=== PATIENT | female | born 1990 | race Caucasian/White ===

== ENCOUNTER 2017-10-27 03:50 | Inpatient (IN) | payer BC, OTHER ==
[2017-10-27] MEDS ORDERED: DEXTROSE 5%-LACTATED RINGERS 500 ML IV ONE (04:00)
[2017-10-27] MEDS ORDERED: PROMETHAZINE HCL 25 MG/1 ML VIAL ONE (04:49)
[2017-10-27] MEDS ORDERED: BUTORPHANOL TARTRATE 1 MG/ML VIAL ONE ×2 (04:49)
[2017-10-27] MEDS ORDERED: PROMETHAZINE HCL 25 MG/1 ML VIAL IVPB ONE (05:00)
[2017-10-27] MEDS ORDERED: BUTORPHANOL TARTRATE 1 MG/ML VIAL IVPB ONE (05:00)
[2017-10-27 05:04] LABS: BASO % 0.1 % (0-2.0); EOS % 0.3 % (0-4.5); HEMATOCRIT 38.7 % (32.4-45.2); INR 0.97 (0.83-1.09); LYMPH % 19.3 % (8-40); MCH 27.5 pg (25.7-33.7); MCHC 33.7 g/dl (32.0-36.0); MEAN CELL VOLUME 81.7 fl (80-96); MEAN PLT VOLUME 9.7 fl (7.5-11.1); MONO % 4.9 % (3.8-10.2); NEUT % 75.4 % (42.8-82.8); PLATELET COUNT 173 K/MM3 (134-434); RBC 4.74 M/mm3 (3.60-5.2); RDW 15.6 % (11.6-15.6); WHITE BLOOD COUNT 12.6 K/mm3 (4.0-10.0)
[2017-10-27 05:07] LABS: ACTIVATED PTT 25.1 SECONDS (25.2-36.5)
[2017-10-27 05:11] LABS: ANION GAP 13 MMOL/L (8-16); BLOOD UREA NITROGEN 7 mg/dL (7-18); CALCIUM 8.5 mg/dL (8.5-10.1); CHLORIDE 107 mmol/L (98-107); CO2 17 mmol/L (21-32); CREATININE 0.5 mg/dL (0.55-1.3); GLUCOSE,RANDOM 97 mg/dL (74-106); POTASSIUM 3.4 mmol/L (3.5-5.1); SODIUM 137 mmol/L (136-145)
[2017-10-27 05:35] VITALS: BMI 32.8
[2017-10-27] MEDS ORDERED: TUBERCULIN PPD 5 TU/0.1ML SYRINGE (IN PATIENT USE ONLY) ID ONE (06:00)
[2017-10-27] MEDS ORDERED: ELECTROLYTE-148 SOLN 1,000 ML IV SCH ×2 (06:30→08:45)
[2017-10-27] MEDS: DEXTROSE 5%-LACTATED RINGERS 1,000 ML IV SCH (06:30)
--- NOTE | 2017-10-27 07:18 | HP ---
Past Medical History - Primary Care Physician PCP:: Martha Hernandez - Admission Chief Complaint: 27yo P1 @ 40.3 wks with painfull contructions, no VB, no LOF, + FM History of Present Illness: 1. PCOS - Overweight - GCT - 144 - nl GTT 2. GBS neg no need for prophylaxis PNL: O pos/RI/RPR-nr/HIV neg/HepB neg Tdap given 09/26/17 History Source: Patient, Medical Record Limitations to Obtaining History: No Limitations - Past Medical History Reproductive: Yes: Ectopic (11/2015 - Right ectopic - MTX) ...: 3 ...Para: 1 ([id number] intrapartum Hemorrhage, fever, seizures?) ...Term: 1 ...: 0 ...Spon : 1 ...Induced : 0 ...Multiple Gestation: 0 ...LMP: 01/13/17 ...EDC by Dates: 10/20/17 ...EDC by Sono: 10/24/17 Heme/Onc: Yes: Other (Increased Bleeding time - neg Heme w/up) Infectious Disease: Yes: Other (Had chicken pox as a child) Endocrine: Yes: Other (PCOS) - Past Surgical History Hx Myomectomy: No Hx Transabdominal Cerclage: No Additional Surgical History: 2016 Laparatomy for ruptured ovarian cyst, MTX postop - Smoking History Smoking history: Former smoker Have you smoked in the past 12 months: No - Alcohol/Substance Use Hx Alcohol Use: No History of Substance Use: reports: None - Social History History of Recent Travel: No Home Medications - Allergies Allergies/Adverse Reactions: Allergies Allergy/AdvReac Type Severity Reaction Status Date / Time No Known Allergies Allergy Verified 10/27/17 05:12 - Home Medications Home Medications: Ambulatory Orders Pnv No.95/Ferrous Fum/Folic AC [ Vitamin Tablet] 1 each PO DAILY Calcium Carbonate [Calcium] 1,200 mg PO DAILY 09/15/17 Review of Systems - Review of Systems Constitutional: reports: No Symptoms Eyes: reports: No Symptoms HENT: reports: No Symptoms Neck: reports: No Symptoms Cardiovascular: reports: No Symptoms Respiratory: reports: No Symptoms Gastrointestinal: reports: No Symptoms Genitourinary: reports: No Symptoms Breasts: reports: No Symptoms Reported Musculoskeletal: reports: No Symptoms Integumentary: reports: No Symptoms Neurological: reports: No Symptoms Endocrine: reports: No Symptoms Hematology/Lymphatic: reports: No Symptoms Psychiatric: reports: No Symptoms Physical Exam - Maternity Vital Signs: Vital Signs Temperature 98.6 F 10/27/17 04:59 Pulse Rate 74 10/27/17 04:59 Respiratory Rate 18 10/27/17 04:59 Blood Pressure 109/59 10/27/17 04:59 O2 Sat by Pulse Oximetry (%) Constitutional: Yes: Well Nourished, No Distress, Calm Eyes: Yes: WNL, Conjunctiva Clear, EOM Intact HENT: Yes: WNL, Atraumatic, Normocephalic Neck: Yes: WNL, Supple, Trachea Midline Cardiovascular: Yes: WNL, Regular Rate and Rhythm Lungs: Clear to auscultation Breast(s): Yes: WNL - Abdominal Exam/OB Fundal Height: 39 (EFW - 7.5lb) Number of Fetuses: Single Presentation: Vertex Contractions: Yes Regularity: Regular (Q 2-3min) Intensity: Mild/Mod Monitor Mode: External Heart Rate (range): 140's Heart Rate Location: Midline Category: I Accelerations: Uniform Decelerations: None - Vaginal Exam/OB Vaginal Bleediing: No Speculum Exam: No Dilatation (cm): 2-3 Amniotic Membrane Status: Intact (@ 4am current exam 7:30am: 4cm/90%/-2) Presentation: Vertex/Position Station: -3 - Physical Exam Musculoskeletal: Yes: WNL Extremities: Yes: WNL Edema: No Integumentary: Yes: WNL Deep Tendon Reflex Grade: Normal +2 ...Motor Strength: WNL Psychiatric: Yes: WNL, Alert, Oriented - Labs Lab Results: CBC, BMP 10/27/17 04:30 10/27/17 04:30 Assessment/Plan 27yo P0 @ 40.3wks in active labor Fetus Category 1 Mother stable Desires pain management Epidural requested continue monitoring labor
[2017-10-27] MEDS ORDERED: FENTANYL/BUPIVACAINE/NS/PF - PCEA - 50 ML DISP.SYRIN EP ONE ×3 (07:45→18:02)
[2017-10-27] MEDS ORDERED: NALOXONE HCL 0.4 MG/ML VIAL IVPUSH PRN (07:49)
[2017-10-27] MEDS ORDERED: FENTANYL/BUPIVACAINE/NS/PF - PCEA - 50 ML DISP.SYRIN EP SCH (08:00)
[2017-10-27] MEDS ORDERED: POTASSIUM CHLORIDE TABS 20 MEQ TABLET.ER (FP) PO ONE (08:47)
--- NOTE | 2017-10-27 08:55 | PN ---
Progress Note (short form) - Note Progress Note: Patient was asked if she is ok discussing private questions with being in the room She said it is no problem Once left the room she reported to the nurse h/o genital warts, no HSV Patient was evaluated by Dr. Avilez in the office and was told there is no problem laboring vaginally. Patient has adequate pelvis and EFW 7.5lb
--- NOTE | 2017-10-27 10:30 | PN ---
Progress Note, Labor Vaginal Exam #1 Labor Exam Date: 10/27/17 Labor Exam Time: 10:15 Heart Rate (range): 140s Dilatation: 5 Effacement (%): 100 Amniotic Membrane Status: Intact Presentation: Vertex/Position Station: -3 Remarks: MF status reassuring contractions slightly spaced out after epidural Will start Pitocin if contractions do not survey superintendent
[2017-10-27] MEDS ORDERED: OXYTOCIN 30 UNITS in 0.9% NS 30 UNIT/500 ML INFUS.BAG IVPB ONE (13:23)
[2017-10-27] MEDS ORDERED: OXYTOCIN 30 UNITS in 0.9% NS 30 UNIT/500 ML INFUS.BAG IVPB SCH (13:30)
[2017-10-27] MEDS ORDERED: OXYTOCIN 20 UNITS in 0.9% NS 20 UNIT/1,000 ML INFUS.BAG IV ONE (16:20)
[2017-10-27] MEDS ORDERED: LIDO 2%/EPI 1:200000 PRESRVFRE (20 ML SDVIAL) ONE (16:57)
--- NOTE | 2017-10-27 17:11 | PN ---
Progress Note, Labor Vaginal Exam #2 Labor Exam Date: 10/27/17 Labor Exam Time: 16:45 Heart Rate (range): 140s Dilatation: 9 Effacement (%): 100 Amniotic Membrane Status: Ruptured (by Dr. Dawn @ 1500 clear fluid) Presentation: Vertex/Position Station: -2 Remarks: FHR monitor placed @ 16:30 Exellent verriability Patient is very uncomfortable, desires to push top off requested and obtained FHR and patient stabilized will continue monitoring progress of labor
[2017-10-27] MEDS ORDERED: AMPICILLIN SODIUM 2 GM VIAL ONE (19:14)
[2017-10-27] MEDS ORDERED: GENTAMICIN SO4 80 MG/2 ML VIAL ONE (19:14)
[2017-10-27] MEDS ORDERED: AMPICILLIN - 2 GM in SODIUM CHLORIDE 100 ML IVPB ONE (19:15)
[2017-10-27] MEDS ORDERED: LIDOCAINE HCL 1% PRESERVATIVE FREE - 30ML VIAL ONE (19:28)
--- NOTE | 2017-10-27 19:48 | PN ---
Delivery - Delivery Vaginal Delivery: No Problems Type of Anesthesia: Epidural Episiotomy/Laceration: None EBL (cc): 400 Delivery, Single - Stages of Labor Date 1st Stage Initiatied: 10/27/17 Time 1st Stage Initiated: 01:00 Date 2nd Stage Initiated: 10/27/17 Date of Delivery: 10/27/17 Placenta: Yes: Spontaneous - Condition of Infant Revenue Accountant/Health Tech Present: No Infant Gender: Female Weight: 8 lb Position: Left, OA - 1 Minute Total Score: 9 5 Minutes Total Score: 9 - [place] Feeding Plan Initial Plan: Elected not to breastfeed exclusively throughout hospitalization Remarks - Remarks Remarks: Uncomplicated vaginal delivery, cord around left shoulder recused 1 periuretheral tear repaired with 3-0 Chromic figure 8.
[2017-10-27] MEDS ORDERED: BENZOCAINE 20% 57 GM BOTTLE TP PRN (19:49)
[2017-10-27] MEDS ORDERED: WITCH HAZEL 50% (TUCKS) 40 PAD/JAR PAD TP PRN (19:49)
[2017-10-27] MEDS ORDERED: BISACODYL 10 MG SUPP.RECT RC PRN (19:49)
[2017-10-27] MEDS ORDERED: BENZOCAINE 28 GM HEMORRHOIDAL OINTMENT TP PRN (19:49)
[2017-10-27] MEDS ORDERED: METHYLERGONOVINE MALEATE 0.2 MG/1 ML AMP IM PRN (19:49)
[2017-10-27] MEDS ORDERED: CEFAZOLIN 1 GM in DEXTROSE 5%-WATER - 50 ML IVPB SCH (20:00)
[2017-10-27] MEDS ORDERED: OXYTOCIN 20 UNITS in 0.9% NS 20 UNIT/1,000 ML INFUS.BAG IV SCH ×2 (20:00→20:15)
[2017-10-27] MEDS: CEFAZOLIN 1 GM in DEXTROSE 5%-WATER - 50 ML IVPB SCH (20:30)
[2017-10-27] MEDS ORDERED: ceFAZolin SODIUM 1 GM VIAL ONE (20:51)
[2017-10-27 21:02] LABS: ARTERIAL BLOOD GAS BASE EXCESS -4.8 meq/l (-2-2); ARTERIAL BLOOD GAS pH 7.32 (7.35-7.45)
[2017-10-27 21:04] LABS: ARTERIAL BLD GAS O2 SATURATION 37.1 % (90-98.9); ARTERIAL BLOOD GAS PO2 20.8 mmHg (80-100); VENOUS PC02 27.5 mmHg (38-52); VENOUS PH 7.42 (7.32-7.42)
[2017-10-27 21:05] LABS: VENOUS PO2 33.7 mmHg (28-48)
[2017-10-28] MEDS ORDERED: DEXTROSE 5%-WATER - 50 ML IVPB ONE ×2 (03:37→11:29)
[2017-10-28] MEDS ORDERED: ceFAZolin SODIUM 1 GM VIAL ONE ×2 (03:37→11:29)
[2017-10-28] MEDS: CEFAZOLIN 1 GM in DEXTROSE 5%-WATER - 50 ML IVPB SCH ×2 (03:49→11:56)
[2017-10-28 07:10] LABS: BASO % 0.1 % (0-2.0); EOS % 0.1 % (0-4.5); HEMATOCRIT 32.6 % (32.4-45.2); HEMOGLOBIN 10.6 GM/dL (10.7-15.3); LYMPH % 12.8 % (8-40); MCH 26.4 pg (25.7-33.7); MCHC 32.5 g/dl (32.0-36.0); MEAN CELL VOLUME 81.5 fl (80-96); MEAN PLT VOLUME 9.4 fl (7.5-11.1); MONO % 6.6 % (3.8-10.2); NEUT % 80.4 % (42.8-82.8); PLATELET COUNT 144 K/MM3 (134-434); RBC 4.01 M/mm3 (3.60-5.2); RDW 15.6 % (11.6-15.6); WHITE BLOOD COUNT 16.4 K/mm3 (4.0-10.0)
--- NOTE | 2017-10-28 08:09 | PN ---
Post Progress Note - Subjective Subjective: No complains Type of Delivery: Vital Signs: Vital Signs Temperature 98.2 F 10/28/17 06:00 Pulse Rate 96 H 10/28/17 06:00 Respiratory Rate 18 10/28/17 06:00 Blood Pressure 118/68 10/28/17 06:00 O2 Sat by Pulse Oximetry (%) 99 10/27/17 19:15 Breast Exam: Yes: Soft Uterus: Yes: Fundus Firm Abdomen/GI: Yes: Abdomen soft, Tolerating PO Lochia: Yes: Rubra Lochia, amount: Small Extremities: Yes: Calves non-tender Perineum: Yes: Intact Activity: Ambulating - Labs Labs: CBC WBC 16.4 K/mm3 (4.0-10.0) H 10/28/17 06:35 RBC 4.01 M/mm3 (3.60-5.2) 10/28/17 06:35 Hgb 10.6 GM/dL (10.7-15.3) L 10/28/17 06:35 Hct 32.6 % (32.4-45.2) D 10/28/17 06:35 MCV 81.5 fl (80-96) 10/28/17 06:35 MCH 26.4 pg (25.7-33.7) 10/28/17 06:35 MCHC 32.5 g/dl (32.0-36.0) 10/28/17 06:35 RDW 15.6 % (11.6-15.6) 10/28/17 06:35 Plt Count 144 K/MM3 (134-434) 10/28/17 06:35 MPV 9.4 fl (7.5-11.1) 10/28/17 06:35 Absolute Neuts (auto) 13.2 K/mm3 (1.5-8.0) H 10/28/17 06:35 Neutrophils % 80.4 % (42.8-82.8) 10/28/17 06:35 Lymphocytes % 12.8 % (8-40) D 10/28/17 06:35 Monocytes % 6.6 % (3.8-10.2) 10/28/17 06:35 Eosinophils % 0.1 % (0-4.5) 10/28/17 06:35 Basophils % 0.1 % (0-2.0) 10/28/17 06:35 Nucleated RBC % 0 % (0-0) 10/28/17 06:35 Assessment/Plan 27yo P 2 now s/p VSS, Afebrile Bleeding well controlled Doing well Rh pos continue routine care Plan d/c 10/29/17
[2017-10-28] MEDS: FERROUS SO4 325 MG TABLET (FP) PO SCH ×2 (09:00→17:44)
[2017-10-28] MEDS: PRENATAL VITAMINS W/ FOLIC ACID TABLET (FP) PO SCH (09:00)
[2017-10-28] MEDS ORDERED: SENNOSIDES/DOCUSATE COMBO (SENNA PLUS) TABLET (UD) PO PRN (22:00)
[2017-10-29 07:17] LABS: BASO % 0.4 % (0-2.0); EOS % 0.9 % (0-4.5); HEMATOCRIT 33.5 % (32.4-45.2); HEMOGLOBIN 11.1 GM/dL (10.7-15.3); LYMPH % 20.1 % (8-40); MCH 27.1 pg (25.7-33.7); MCHC 33.3 g/dl (32.0-36.0); MEAN CELL VOLUME 81.6 fl (80-96); NEUT % 72.6 % (42.8-82.8); PLATELET COUNT 157 K/MM3 (134-434); RDW 15.8 % (11.6-15.6); WHITE BLOOD COUNT 12.2 K/mm3 (4.0-10.0)
[2017-10-29] MEDS: FERROUS SO4 325 MG TABLET (FP) PO SCH (08:00)
[2017-10-29] MEDS: IBUPROFEN 600 MG TABLET (FP) PO PRN ×2 (09:47→14:53)
[2017-10-29] MEDS: ACETAMINOPHEN 325 MG TABLET (FP) PO PRN ×2 (09:49→14:54)
[2017-10-29] MEDS: DEXTROSE 5%-LACTATED RINGERS 1,000 ML IV SCH (09:50)
[2017-10-29] MEDS: PRENATAL VITAMINS W/ FOLIC ACID TABLET (FP) PO SCH (10:00)
[2017-10-29 13:20] VITALS: BP 106/67; PULSE 87; TEMP 97.8
== END 2017-10-29 17:19 | disposition home or self-care (01) | DRG 775 ==
LOC: JDEL 03:50 → JLDR 04:00 → J3W 22:20
PROVIDERS: ADMIT Obstetrics & Gynecology; ATTEND Obstetrics & Gynecology
PROC: 10D07Z8 Extraction of Products of Conception, Other, Via Natural or Artificial Opening (ICD-10-PCS; principal; 2017-10-27)
DX: O26.893 Other specified pregnancy related conditions, third trimester (principal); Z3A.40 40 weeks gestation of pregnancy; E87.6 Hypokalemia; Z37.0 Single live birth
CPT/HCPCS: 36415; 36600; 59409; 71046-TC-FY; 80048; 82803; 85025; 85610; 85730; 86593; 86850; 86900; 86901; 90686; G0008

== ENCOUNTER 2018-11-18 12:20 | Day surgery (SDC) | payer BC, OTHER ==
[2018-11-16 17:53] VITALS: BMI 31.5
--- NOTE | 2018-11-18 14:37 | HP ---
Past Medical History - Primary Care Physician PCP:: Lucas Avilez - Admission Chief Complaint: 28yo P2 admitted for sterilization with laparoscopic BTL. History of Present Illness: Undesired fertility, recent TOP. 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: Alzheimer's, CVA, Dementia, Migraine, Multiple Sclerosis, Peripheral Neuropathy, Parkinson's, Seizure, Syncope, TIA, Vertigo, Other Cardiovascular: No: AFIB, Aneurysm, Aortic Insufficiency, Aortic Stenosis, CAD, CHF, Deep Vein Thrombosis, HTN, Hyperlipdemia, SC, Mitral Insufficiency, Mitral Stenosis, Murmur, Pulmonary Hypertension, Other Pulmonary: No: Asthma, Bronchitis, Cancer, COPD, O2 Dependent, Pneumonia, Previously Intubated, Pulmonary Embolus, Pulmonary Fibrosis, Sleep Apnea, Other Gastrointestinal: No: Ascites, Cancer, Constipation, Crohn's Disease, Diverticulitis, Diverticulosis, Esophageal Varices, Gastritis, GERD, GI Bleed, Hemorrhoids, Hiatal Hernia, Inflamatory Bowel Disease, Irritable Bowel Disease, Pancreatitis, Peptic Ulcer Disease, Ulcerative Colitis, Other Hepatobiliary: No: Cirrhosis, Cholelithiasis, Cholecystitis, Choledocholithiasis , Hepatitis A, Hepatitis B, Hepatitis C, Other Renal/: No: Renal Failure, Renal Inusuff, BPH, Cancer, Hematuria, Hemodialysis , Neurogenic Bladder, Renal Calculi, UTI, Other Reproductive: Yes: Polycystic Ovary Syndrome ...Para: 2 Heme/Onc: Yes: Other (Increased Bleeding time - neg Heme w/up) Infectious Disease: Yes: Other (Had chicken pox as a child) Psych: No: Addictions, Anxiety, Bipolar, Depression, Panic, Psychosis, Schizophrenia, Other Musculoskeletal: No: Bursitis, Chronic low back pain, Hemiparesis, Hemiplegia, Osteoarthritis, Paraplegia, Other Rheumatology: No: Fibromyalgia, Gout, Lupus, Rheumatoid Arthritis, Sarcoidosis, Vasculitis, Other ENT: No: Allergic Rhinitis, Sinusitis, Other Endocrine: Yes: Other (PCOS) - Past Surgical History Hx Myomectomy: No Hx Transabdominal Cerclage: No Additional Surgical History: Exp. laparotomy for ru[tured ovarian cyst in -- 2016. Right ectopic . D&C x 2 - Smoking History Smoking history: Current some day smoker Have you smoked in the past 12 months: Yes - Alcohol/Substance Use Hx Alcohol Use: No History of Substance Use: reports: None - Social History Usual Living Arrangement: Yes: With Spouse, With Child Do you think of yourself as: Straight/Heterosexual ADL: Independent History of Recent Travel: No Home Medications - Allergies Allergies/Adverse Reactions: Allergies Allergy/AdvReac Type Severity Reaction Status Date / Time No Known Allergies Allergy Verified 11/18/18 12:36 - Home Medications Home Medications: Ambulatory Orders NK [No Known Home Medication] 11/16/18 Family Medical History Family Hx Cancer: Mother (breast), Father (prostate) Review of Systems - Review of Systems Constitutional: reports: No Symptoms Eyes: reports: No Symptoms HENT: reports: No Symptoms Neck: reports: No Symptoms Cardiovascular: reports: No Symptoms Respiratory: reports: No Symptoms Gastrointestinal: reports: No Symptoms Genitourinary: reports: No Symptoms Breasts: reports: No Symptoms Reported Musculoskeletal: reports: No Symptoms Integumentary: reports: No Symptoms Neurological: reports: No Symptoms Endocrine: reports: No Symptoms Hematology/Lymphatic: reports: No Symptoms Psychiatric: reports: No Symptoms Pain Intensity: 0 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 Vital Signs: Vital Signs Temperature Pulse Rate 88 11/18/18 12:38 Respiratory Rate 16 11/18/18 12:38 Blood Pressure 107/70 11/18/18 12:38 O2 Sat by Pulse Oximetry (%) 99 11/18/18 12:38 Constitutional: Yes: Well Nourished, No Distress, Calm Eyes: Yes: WNL, Conjunctiva Clear HENT: Yes: WNL, Atraumatic, Normocephalic Neck: Yes: WNL, Supple, Trachea Midline Cardiovascular: Yes: WNL, Regular Rate and Rhythm Respiratory: Yes: WNL, Regular, CTA Bilaterally Gastrointestinal: Yes: WNL, Normal Bowel Sounds, Soft ...Rectal Exam: Yes: WNL Renal/: Yes: WNL Pelvis: Yes: WNL External Genitalia: Yes: Normal Internal Exam Deferred: No Vaginal Exam: Yes: Normal Cervix: Yes: Normal Uterus: Yes: Normal Adnexa: Normal: Left, Right Breast(s): Yes: WNL Musculoskeletal: Yes: WNL Extremities: Yes: WNL Edema: No Integumentary: Yes: WNL Neurological: Yes: WNL, Alert, Oriented ...Motor Strength: WNL Psychiatric: Yes: WNL, Alert, Oriented Assessment/Plan 28yo P2 admitted for sterilization with laparoscopic BTL. We had discussed the risks, benefits, alternatives of surgery at length including but not limited to infection, bleeding, scarring, perforation, amenorrhea, infertility, hysterectomy, etc. The pt verbalized understanding and requested to proceed with surgery. I emphasized that all surgeries have risks and no guarantees can be provided.
[2018-11-18] MEDS ORDERED: PROPOFOL 20 ML ONE (14:47)
[2018-11-18] MEDS ORDERED: ROCURONIUM BROMIDE 50 MG/5 ML SYRINGE ONE (14:49)
[2018-11-18] MEDS ORDERED: BUPIVACAINE HCL/PF 0.25% (2.5MG/ML) 10 ML VIAL ONE (15:23)
[2018-11-18] MEDS ORDERED: NEOSTIGMINE METHYLSULFATE 0.5 MG/1 ML - 10 ML MDV ONE (15:29)
[2018-11-18] MEDS ORDERED: BUPIVACAINE HCL/PF 0.25% (2.5MG/ML) 10 ML VIAL IJ ONE (15:35)
--- NOTE | 2018-11-18 15:46 | OP ---
Operative Note - Note: Operative Date: 11/18/18 Pre-Operative Diagnosis: Sterilization Operation: Laparoscopic BTL Findings: EUA: small AV uterus. Laparoscopy: normal AV uterus, normal tubes and obaries b/l. Normal liver, stomach, bowel. Post-Operative Diagnosis: Same as Pre-op Surgeon: Lucas Avilez [employer] Worker: Shazia Kamara Anesthesiologist/JUNIOR LINUX ADMINISTRATOR: Jason Nichols Anesthesia: General Specimens Removed: Bilateral Fallopian tubes Estimated Blood Loss (mls): 5 Drains & Tubes with Location: Pena cath Drains, Volume Out (mls): 100 Blood Volume Replaced (mls): 0 Fluid Volume Replaced (mls): 600 Operative Report Dictated: Yes
[2018-11-18 17:07] VITALS: TEMP 98.7
--- NOTE | 2018-11-18 17:07 | OP ---
DATE OF OPERATION: 11/18/2018 PREOPERATIVE DIAGNOSIS: Sterilization. POSTOPERATIVE DIAGNOSIS: Sterilization. PROCEDURE: Laparoscopic bilateral tubal ligation. SURGEON: Lucas Avilez M.D. DIRECTOR OF RESOURCE DEVELOPMENT: Shazia Kamara M.D. ANESTHESIOLOGIST: Jason Nichols MD ANESTHESIA: General. COMPLICATIONS: None. PATHOLOGY: Bilateral fallopian tubes. INTRAVENOUS FLUIDS: 600 mL. URINE OUTPUT: 100 mL of clear urine at the end of the procedure. ESTIMATED BLOOD LOSS: 5 mL. COMPLICATIONS: None. FINDINGS: Examination under anesthesia revealed a small anteverted uterus with no pelvic or adnexal masses. Laparoscopy revealed a normal anteverted uterus with normal fallopian tubes and ovaries bilaterally. Normal visualized portions of the liver, stomach, and bowel. PROCEDURE: The patient was met preoperatively. Risks, benefits, and alternatives of surgery were discussed in detail. The consent form was signed and reviewed, and all questions were answered. The patient verbalized her understanding, and requested to proceed with the surgery. The patient was brought to the OR with the IV running. She was placed on a surgical table in the supine position. The general anesthesia was achieved without difficulty. The patient was then placed in a dorsal lithotomy position using adjustable Price stirrups. She was examined under anesthesia. The examination revealed a small anteverted uterus with no pelvic or adnexal masses. The patient was then prepped and draped in the usual sterile fashion. A Pena catheter was inserted and left to drain to gravity. A HUMI uterine manipulator was inserted sterilely and without complications. The surgeons then re-gloved and proceeded with the laparoscopy. A 5-mm incision was made with the knife inside the umbilicus. A Veress needle was introduced through the umbilical incision and into the peritoneal cavity. Intraperitoneal placement was confirmed. Pneumoperitoneum was then induced with CO2 gas and intraabdominal pressure limited to 15 mmHg. The Veress needle was then removed. A 5-mm Visiport trocar was introduced through the umbilical incision, and into the peritoneal cavity under direct visualization. Atraumatic placement was confirmed. A second 5-mm incision was then made in the right lower quadrant and a trocar was inserted under direct visualization. Atraumatic placement was confirmed. A third 5-mm incision was made in the left lower quadrant, and a trocar was inserted under direct visualization, and atraumatic placement was confirmed. A LigaSure instrument was then used to excise both fallopian tubes with good hemostasis and without complications. The fallopian tubes were then removed and sent to pathology for evaluation. Survey of the operative site revealed good hemostasis. Survey of the bowel, liver, and stomach revealed no abnormalities in visualized portions. The pneumoperitoneum was then reduced. The trocars were removed under direct visualization. Good hemostasis was noted. The incision sites were closed using a 4-0 Biosyn suture. The patient was returned to supine position. She was then transferred to recovery room in stable condition and awake. Sponge, lap and instrument counts were correct. Khris [id number]
[2018-11-18 18:11] VITALS: BP 114/59; PULSE 81
--- NOTE | 2018-11-20 17:52 | PATH ---
Surgical Pathology Report Patient Name: VELASQUEZ SWANSON [facility]. Rec. #: [id number] /Age/Gender: 1990 (Age: 28) / F Account: [id number] Location: [facility] Taken: 11/18/2018 Received: 11/19/2018 Reported: 11/20/2018 Physicians: Lucas Avilez M.D. Specimen(s) Received A: RIGHT FALLOPIAN TUBE B: LEFT FALLOPIAN TUBE Clinical History Voluntary sterilization Final Diagnosis A. RIGHT FALLOPIAN TUBE, SALPINGECTOMY: PORTION OF FALLOPIAN TUBE WITH COMPLETE CROSS SECTION OF THE LUMEN. B. LEFT FALLOPIAN TUBE, SALPINGECTOMY: PORTION OF FALLOPIAN TUBE WITH COMPLETE CROSS SECTION OF THE LUMEN. Electronically Signed Marcela Kelly M.D. Gross Description A. Received fresh labelled "right fallopian tube" is a 6.5 cm long by 0.5 cm in diameter portion of fallopian tube with a fimbriated end. Serial sections reveal unremarkable. Pilot Captain sections are submitted in one cassette. B. Received fresh labelled "left fallopian tube" is a 4.5 cm long by 0.5 cm in diameter portion of fallopian tube with a fimbriated end. Serial sections reveal unremarkable. Pilot Captain sections are submitted in one cassette. CB/11/19/2018 hector/11/19/2018
== END 2018-11-18 18:40 | disposition home or self-care (01) ==
LOC: JASU-SURG 12:20
PROVIDERS: ATTEND Obstetrics & Gynecology
PROC: 0U574ZZ Destruction of Bilateral Fallopian Tubes, Percutaneous Endoscopic Approach (ICD-10-PCS; principal; 2018-11-18 14:00)
DX: Z30.2 Encounter for sterilization (principal)
CPT/HCPCS: 36415; 84703; 86850; 86900; 86901; 88302-TC; 94760